=== PATIENT | male | born 2000 | race American Indian/Alaskan Native ===

== ENCOUNTER 2019-01-19 04:04 | Emergency (ER) | payer SELFPAY ==
[2019-01-19 04:48] LABS: Basophils % (Auto) 0.4 % (0.0-1.8); Eosinophils % (Auto) 0.3 % (0.0-4.3); Hematocrit 47.5 % (35.5-45.6); Hemoglobin 16.3 gm/dl (11.8-15.2); Lymphocytes # (Auto) 0.8 K/mm3 (1.2-5.4); Lymphocytes % (Auto) 9.7 % (13.4-35.0); Mean Corpuscular HGB Conc 34 % (32-34); Mean Corpuscular Volume 90 fl (84-94); Monocytes # (Auto) 0.5 K/mm3 (0.0-0.8); Monocytes % (Auto) 6.1 % (0.0-7.3); Platelet Count 224 K/mm3 (140-440); Red Blood Count 5.29 M/mm3 (3.65-5.03); Red Cell Distribution Width 13.4 % (13.2-15.2)
[2019-01-19 05:04] LABS: BUN/Creatinine Ratio 10; Blood Urea Nitrogen 7 mg/dL (9-20); Calcium 9.8 mg/dL (8.4-10.2); Hemolysis Index 14
[2019-01-19 05:07] LABS: Alanine Aminotransferase 10 units/L (7-56); Albumin 5.1 g/dL (3.9-5)
[2019-01-19 05:10] LABS: Bilirubin,Direct < 0.2 mg/dL (0-0.2)
[2019-01-19 06:26] LABS: Bilirubin,Urine NEG (Negative); Blood,Urine NEG (Negative); Color,Urine Straw (Yellow); Protein,Urine <15 mg/dL mg/dL (Negative); RBC,Urine < 1.0 /HPF (0.0-6.0); Urobilinogen,Urine < 2.0 mg/dL (<2.0)
[2019-01-19 06:33] LABS: Amphetamine Screen,Urine PRESUMPTIVE NEGATIVE; Benzodiazepines Screen,Urine PRESUMPTIVE NEGATIVE; Cocaine Screen,Urine PRESUMPTIVE NEGATIVE; Methadone Screen,Urine PRESUMPTIVE NEGATIVE; Opiate Screen,Urine PRESUMPTIVE NEGATIVE
[2019-01-19] MEDS ORDERED: SODIUM CHLORIDE 0.9% 1000 ML 1,000 ML IV ONE (06:38)
--- NOTE | 2019-01-19 06:38 | Emergency Department Report ---
ED General Adult HPI - General Chief complaint: Arrhythmia/Palpitations Stated complaint: RAPID HEART BEAT HEADACHE Time Seen by Provider: 01/19/19 06:08 Source: patient Mode of arrival: Ambulatory Limitations: No Limitations - History of Present Illness Initial comments: This is a 18 year old that admitted he took 2 of a friend's pills which he thought were Xanax. However they seem to have an untoward effect and his heart started racing. He states that he has not taken any Xanax for several days but apparently does take it when it's available. He denies any medical history. He denies any injury or seizure. He states that he has been here from [facility] for 3 days. He denies any difficulty in breathing, leg pain or swelling. -: Gradual Location: head (headache was mild and resolved) Severity scale (0 -10): 0 Quality: other (heart was racing) Consistency: now resolved Improves with: none Worsens with: none Associated Symptoms: denies other symptoms Treatments Prior to Arrival: none - Related Data Home Medications Medication Instructions Recorded Confirmed Last Taken No Known Home Medications [No 01/19/19 01/19/19 Unknown Reported Home Medications] Allergies Allergy/AdvReac Type Severity Reaction Status Date / Time No Known Allergies Allergy Verified 01/19/19 04:40 ED Review of Systems ROS: Stated complaint: RAPID HEART BEAT HEADACHE Other details as noted in HPI Constitutional: denies: chills, fever Eyes: denies: eye pain, eye discharge, vision change ENT: denies: ear pain, throat pain Respiratory: denies: cough, shortness of breath, wheezing Cardiovascular: other (heart racing). denies: chest pain, palpitations Endocrine: no symptoms reported Gastrointestinal: denies: abdominal pain, nausea, diarrhea Genitourinary: denies: urgency, dysuria Musculoskeletal: denies: back pain, joint swelling, arthralgia Skin: denies: rash, lesions Neurological: headache. denies: weakness, paresthesias Psychiatric: denies: anxiety, depression Hematological/Lymphatic: denies: easy bleeding, easy bruising ED Past Medical Hx - Past Medical History Previous Medical History?: No - Surgical History Past Surgical History?: No - Social History Smoking Status: Current Every Day Smoker Substance Use Type: Marijuana, Other - Medications Home Medications: Home Medications Medication Instructions Recorded Confirmed Last Taken Type No Known Home Medications [No 01/19/19 01/19/19 Unknown History Reported Home Medications] ED Physical Exam - General Limitations: Altered Mental Status (somewhat lethargic) General appearance: alert, in no apparent distress - Head Head exam: Present: atraumatic, normocephalic - Eye Eye exam: Present: normal appearance. Absent: scleral icterus - ENT ENT exam: Present: mucous membranes moist - Neck Neck exam: Present: normal inspection - Respiratory Respiratory exam: Present: normal lung sounds bilaterally. Absent: respiratory distress - Cardiovascular Cardiovascular Exam: Present: normal rhythm, tachycardia. Absent: systolic murmur, diastolic murmur, rubs, gallop - GI/Abdominal GI/Abdominal exam: Present: soft, normal bowel sounds. Absent: distended, tenderness, guarding, rebound - Rectal Rectal exam: Present: deferred - Extremities Exam Extremities exam: Present: normal inspection - Back Exam Back exam: Present: normal inspection - Neurological Exam Neurological exam: Present: alert, oriented X3, CN II-XII intact. Absent: motor sensory deficit - Psychiatric Psychiatric exam: Present: normal mood, flat affect - Skin Skin exam: Present: warm, dry, intact, normal color. Absent: rash ED Course Vital Signs 01/19/19 01/19/19 01/19/19 04:08 04:19 07:00 Temperature 98.3 F 98 F Pulse Rate 175 H 88 Respiratory 20 20 21 Rate Blood Pressure 135/74 105/71 Blood Pressure 135/74 [Right] O2 Sat by Pulse 98 99 Oximetry 01/19/19 01/19/19 01/19/19 07:15 07:30 07:37 Temperature 98.4 F Pulse Rate 86 78 Respiratory 19 20 Rate Blood Pressure 113/71 98/59 Blood Pressure [Right] O2 Sat by Pulse Oximetry 01/19/19 01/19/19 01/19/19 07:45 08:00 08:15 Temperature Pulse Rate 82 79 75 Respiratory 20 19 22 Rate Blood Pressure 95/61 95/57 99/61 Blood Pressure [Right] O2 Sat by Pulse Oximetry 01/19/19 08:30 Temperature Pulse Rate 95 H Respiratory 12 Rate Blood Pressure 104/68 Blood Pressure [Right] O2 Sat by Pulse Oximetry ED Medical Decision Making - Lab Data Result diagrams: 01/19/19 04:38 01/19/19 04:38 Laboratory Results - last 24 hr 1101/19/19 01/19/19 04:38 04:38 04:38 WBC 8.1 RBC 5.29 H Hgb 16.3 H Hct 47.5 H MCV 90 MCH 31 MCHC 34 RDW 13.4 Plt Count 224 Lymph % (Auto) 9.7 L Cobb % (Auto) 6.1 Eos % (Auto) 0.3 Baso % (Auto) 0.4 Lymph # 0.8 L Cobb # 0.5 Eos # 0.0 Baso # 0.0 Seg Neutrophils % 83.5 H Seg Neutrophils # 6.8 Sodium 139 Potassium 3.4 L Chloride 98.3 Carbon Dioxide 24 Anion Gap 20 BUN 7 L Creatinine 0.7 L Estimated GFR > 60 BUN/Creatinine Ratio 10 Glucose 156 H Calcium 9.8 Total Bilirubin 0.70 Direct Bilirubin < 0.2 Indirect Bilirubin 0.5 AST 15 ALT 10 Alkaline Phosphatase 75 Troponin T < 0.010 Total Protein 7.5 Albumin 5.1 H Albumin/Globulin Ratio 2.1 Urine Bilirubin Urine RBC (Auto) Urine Opiates Screen Urine Methadone Screen Ur Barbiturates Screen Ur Phencyclidine Scrn Ur Amphetamines Screen U Benzodiazepines Scrn Urine Cocaine Screen 01/19/19 01/19/19 06:00 06:00 WBC RBC Hgb Hct MCV MCH MCHC RDW Plt Count Lymph % (Auto) Cobb % (Auto) Eos % (Auto) Baso % (Auto) Lymph # Cobb # Eos # Baso # Seg Neutrophils % Seg Neutrophils # Sodium Potassium Chloride Carbon Dioxide Anion Gap BUN Creatinine Estimated GFR BUN/Creatinine Ratio Glucose Calcium Total Bilirubin Direct Bilirubin Indirect Bilirubin AST ALT Alkaline Phosphatase Troponin T Total Protein Albumin Albumin/Globulin Ratio Urine Bilirubin Neg Urine RBC (Auto) < 1.0 Urine Opiates Screen Presumptive negative Urine Methadone Screen Presumptive negative Ur Barbiturates Screen Presumptive negative Ur Phencyclidine Scrn Presumptive negative Ur Amphetamines Screen Presumptive negative U Benzodiazepines Scrn Presumptive negative Urine Cocaine Screen Presumptive negative Laboratory Results - last 24 hr 01/19/19 01/19/19 01/19/19 04:38 04:38 04:38 WBC 8.1 RBC 5.29 H Hgb 16.3 H Hct 47.5 H MCV 90 MCH 31 MCHC 34 RDW 13.4 Plt Count 224 Lymph % (Auto) 9.7 L Cobb % (Auto) 6.1 Eos % (Auto) 0.3 Baso % (Auto) 0.4 Lymph # 0.8 L Cobb # 0.5 Eos # 0.0 Baso # 0.0 Seg Neutrophils % 83.5 H Seg Neutrophils # 6.8 APTT Sodium 139 Potassium 3.4 L Chloride 98.3 Carbon Dioxide 24 Anion Gap 20 BUN 7 L Creatinine 0.7 L Estimated GFR > 60 BUN/Creatinine Ratio 10 Glucose 156 H Calcium 9.8 Magnesium Total Bilirubin 0.70 Direct Bilirubin < 0.2 Indirect Bilirubin 0.5 AST 15 ALT 10 Alkaline Phosphatase 75 Troponin T < 0.010 Total Protein 7.5 Albumin 5.1 H Albumin/Globulin Ratio 2.1 TSH Free T4 Urine Color Urine Turbidity Urine pH Ur Specific [place] Urine Protein Urine Glucose (UA) Urine Ketones Urine Blood Urine Nitrite Urine Bilirubin Urine Urobilinogen Ur Leukocyte Esterase Urine WBC (Auto) Urine RBC (Auto) Urine Opiates Screen Urine Methadone Screen Ur Barbiturates Screen Ur Phencyclidine Scrn Ur Amphetamines Screen U Benzodiazepines Scrn Urine Cocaine Screen U Marijuana (THC) Screen Drugs of Abuse Note 01/19/19 01/19/19 01/19/19 06:00 06:00 07:05 WBC RBC Hgb Hct MCV MCH MCHC RDW Plt Count Lymph % (Auto) Cobb % (Auto) Eos % (Auto) Baso % (Auto) Lymph # Cobb # Eos # Baso # Seg Neutrophils % Seg Neutrophils # APTT 30.3 Sodium Potassium Chloride Carbon Dioxide Anion Gap BUN Creatinine Estimated GFR BUN/Creatinine Ratio Glucose Calcium Magnesium Total Bilirubin Direct Bilirubin Indirect Bilirubin AST ALT Alkaline Phosphatase Troponin T Total Protein Albumin Albumin/Globulin Ratio TSH Free T4 Urine Color Straw Urine Turbidity Clear Urine pH 7.0 Ur Specific [place] 1.004 Urine Protein <15 mg/dl Urine Glucose (UA) Neg Urine Ketones Neg Urine Blood Neg Urine Nitrite Neg Urine Bilirubin Neg Urine Urobilinogen < 2.0 Ur Leukocyte Esterase Neg Urine WBC (Auto) 0.0 Urine RBC (Auto) < 1.0 Urine Opiates Screen Presumptive negative Urine Methadone Screen Presumptive negative Ur Barbiturates Screen Presumptive negative Ur Phencyclidine Scrn Presumptive negative Ur Amphetamines Screen Presumptive negative U Benzodiazepines Scrn Presumptive negative Urine Cocaine Screen Presumptive negative U Marijuana (THC) Screen Presumptive positive Drugs of Abuse Note Disclamer 01/19/19 01/19/19 07:05 07:05 WBC RBC Hgb Hct MCV MCH MCHC RDW Plt Count Lymph % (Auto) Cobb % (Auto) Eos % (Auto) Baso % (Auto) Lymph # Cobb # Eos # Baso # Seg Neutrophils % Seg Neutrophils # APTT Sodium Potassium Chloride Carbon Dioxide Anion Gap BUN Creatinine Estimated GFR BUN/Creatinine Ratio Glucose Calcium Magnesium 2.10 Total Bilirubin Direct Bilirubin Indirect Bilirubin AST ALT Alkaline Phosphatase Troponin T Total Protein Albumin Albumin/Globulin Ratio TSH 2.360 Free T4 1.50 H Urine Color Urine Turbidity Urine pH Ur Specific [place] Urine Protein Urine Glucose (UA) Urine Ketones Urine Blood Urine Nitrite Urine Bilirubin Urine Urobilinogen Ur Leukocyte Esterase Urine WBC (Auto) Urine RBC (Auto) Urine Opiates Screen Urine Methadone Screen Ur Barbiturates Screen Ur Phencyclidine Scrn Ur Amphetamines Screen U Benzodiazepines Scrn Urine Cocaine Screen U Marijuana (THC) Screen Drugs of Abuse Note Laboratory Results - last 24 hr 01/19/19 01/19/19 01/19/19 04:38 04:38 04:38 WBC 8.1 RBC 5.29 H Hgb 16.3 H Hct 47.5 H MCV 90 MCH 31 MCHC 34 RDW 13.4 Plt Count 224 Lymph % (Auto) 9.7 L [place] % (Auto) 6.1 Eos % (Auto) 0.3 Baso % (Auto) 0.4 Lymph # 0.8 L Cobb # 0.5 Eos # 0.0 Baso # 0.0 Seg Neutrophils % 83.5 H Seg Neutrophils # 6.8 APTT Sodium 139 Potassium 3.4 L Chloride 98.3 Carbon Dioxide 24 Anion Gap 20 BUN 7 L Creatinine 0.7 L Estimated GFR > 60 BUN/Creatinine Ratio 10 Glucose 156 H Calcium 9.8 Magnesium Total Bilirubin 0.70 Direct Bilirubin < 0.2 Indirect Bilirubin 0.5 AST 15 ALT 10 Alkaline Phosphatase 75 Troponin T < 0.010 Total Protein 7.5 Albumin 5.1 H Albumin/Globulin Ratio 2.1 TSH Free T4 Urine Color Urine Turbidity Urine pH Ur Specific [place] Urine Protein Urine Glucose (UA) Urine Ketones Urine Blood Urine Nitrite Urine Bilirubin Urine Urobilinogen Ur Leukocyte Esterase Urine WBC (Auto) Urine RBC (Auto) Urine Opiates Screen Urine Methadone Screen Ur Barbiturates Screen Ur Phencyclidine Scrn Ur Amphetamines Screen U Benzodiazepines Scrn Urine Cocaine Screen U Marijuana (THC) Screen Drugs of Abuse Note 01/19/19 01/19/19 01/19/19 06:00 06:00 07:05 WBC RBC Hgb Hct MCV MCH MCHC RDW Plt Count Lymph % (Auto) Cobb % (Auto) Eos % (Auto) Baso % (Auto) Lymph # Cobb # Eos # Baso # Seg Neutrophils % Seg Neutrophils # APTT 30.3 Sodium Potassium Chloride Carbon Dioxide Anion Gap BUN Creatinine Estimated GFR BUN/Creatinine Ratio Glucose Calcium Magnesium Total Bilirubin Direct Bilirubin Indirect Bilirubin AST ALT Alkaline Phosphatase Troponin T Total Protein Albumin Albumin/Globulin Ratio TSH Free T4 Urine Color Straw Urine Turbidity Clear Urine pH 7.0 Ur Specific [place] 1.004 Urine Protein <15 mg/dl Urine Glucose (UA) Neg Urine Ketones Neg Urine Blood Neg Urine Nitrite Neg Urine Bilirubin Neg Urine Urobilinogen < 2.0 Ur Leukocyte Esterase Neg Urine WBC (Auto) 0.0 Urine RBC (Auto) < 1.0 Urine Opiates Screen Presumptive negative Urine Methadone Screen Presumptive negative Ur Barbiturates Screen Presumptive negative Ur Phencyclidine Scrn Presumptive negative Ur Amphetamines Screen Presumptive negative U Benzodiazepines Scrn Presumptive negative Urine Cocaine Screen Presumptive negative U Marijuana (THC) Screen Presumptive positive Drugs of Abuse Note Disclamer 01/19/19 01/19/19 07:05 07:05 WBC RBC Hgb Hct MCV MCH MCHC RDW Plt Count Lymph % (Auto) Cobb % (Auto) Eos % (Auto) Baso % (Auto) Lymph # Cobb # Eos # Baso # Seg Neutrophils % Seg Neutrophils # APTT Sodium Potassium Chloride Carbon Dioxide Anion Gap BUN Creatinine Estimated GFR BUN/Creatinine Ratio Glucose Calcium Magnesium 2.10 Total Bilirubin Direct Bilirubin Indirect Bilirubin AST ALT Alkaline Phosphatase Troponin T Total Protein Albumin Albumin/Globulin Ratio TSH 2.360 Free T4 1.50 H Urine Color Urine Turbidity Urine pH Ur Specific [place] Urine Protein Urine Glucose (UA) Urine Ketones Urine Blood Urine Nitrite Urine Bilirubin Urine Urobilinogen Ur Leukocyte Esterase Urine WBC (Auto) Urine RBC (Auto) Urine Opiates Screen Urine Methadone Screen Ur Barbiturates Screen Ur Phencyclidine Scrn Ur Amphetamines Screen U Benzodiazepines Scrn Urine Cocaine Screen U Marijuana (THC) Screen Drugs of Abuse Note Laboratory Results - last 24 hr 01/19/19 01/19/19 01/19/19 04:38 04:38 04:38 WBC 8.1 RBC 5.29 H Hgb 16.3 H Hct 47.5 H MCV 90 MCH 31 MCHC 34 RDW 13.4 Plt Count 224 Lymph % (Auto) 9.7 L [place] % (Auto) 6.1 Eos % (Auto) 0.3 Baso % (Auto) 0.4 Lymph # 0.8 L Cobb # 0.5 Eos # 0.0 Baso # 0.0 Seg Neutrophils % 83.5 H Seg Neutrophils # 6.8 PT INR APTT D-Dimer Sodium 139 Potassium 3.4 L Chloride 98.3 Carbon Dioxide 24 Anion Gap 20 BUN 7 L Creatinine 0.7 L Estimated GFR > 60 BUN/Creatinine Ratio 10 Glucose 156 H Calcium 9.8 Magnesium Total Bilirubin 0.70 Direct Bilirubin < 0.2 Indirect Bilirubin 0.5 AST 15 ALT 10 Alkaline Phosphatase 75 Troponin T < 0.010 Total Protein 7.5 Albumin 5.1 H Albumin/Globulin Ratio 2.1 TSH Free T4 Urine Color Urine Turbidity Urine pH Ur Specific [place] Urine Protein Urine Glucose (UA) Urine Ketones Urine Blood Urine Nitrite Urine Bilirubin Urine Urobilinogen Ur Leukocyte Esterase Urine WBC (Auto) Urine RBC (Auto) Urine Opiates Screen Urine Methadone Screen Ur Barbiturates Screen Ur Phencyclidine Scrn Ur Amphetamines Screen U Benzodiazepines Scrn Urine Cocaine Screen U Marijuana (THC) Screen Drugs of Abuse Note 01/19/19 01/19/19 01/19/19 06:00 06:00 07:05 WBC RBC Hgb Hct MCV MCH MCHC RDW Plt Count Lymph % (Auto) Cobb % (Auto) Eos % (Auto) Baso % (Auto) Lymph # Cobb # Eos # Baso # Seg Neutrophils % Seg Neutrophils # PT TNR INR TNR APTT TNR D-Dimer TNR Sodium Potassium Chloride Carbon Dioxide Anion Gap BUN Creatinine Estimated GFR BUN/Creatinine Ratio Glucose Calcium Magnesium Total Bilirubin Direct Bilirubin Indirect Bilirubin AST ALT Alkaline Phosphatase Troponin T Total Protein Albumin Albumin/Globulin Ratio TSH Free T4 Urine Color Straw Urine Turbidity Clear Urine pH 7.0 Ur Specific [place] 1.004 Urine Protein <15 mg/dl Urine Glucose (UA) Neg Urine Ketones Neg Urine Blood Neg Urine Nitrite Neg Urine Bilirubin Neg Urine Urobilinogen < 2.0 Ur Leukocyte Esterase Neg Urine WBC (Auto) 0.0 Urine RBC (Auto) < 1.0 Urine Opiates Screen Presumptive negative Urine Methadone Screen Presumptive negative Ur Barbiturates Screen Presumptive negative Ur Phencyclidine Scrn Presumptive negative Ur Amphetamines Screen Presumptive negative U Benzodiazepines Scrn Presumptive negative Urine Cocaine Screen Presumptive negative U Marijuana (THC) Screen Presumptive positive Drugs of Abuse Note Disclamer 01/19/19 01/19/19 01/19/19 07:05 07:05 08:09 WBC RBC Hgb Hct MCV MCH MCHC RDW Plt Count Lymph % (Auto) [place] % (Auto) Eos % (Auto) Baso % (Auto) Lymph # Cobb # Eos # Baso # Seg Neutrophils % Seg Neutrophils # PT 16.9 H INR 1.39 H APTT 32.2 D-Dimer Sodium Potassium Chloride Carbon Dioxide Anion Gap BUN Creatinine Estimated GFR BUN/Creatinine Ratio Glucose Calcium Magnesium 2.10 Total Bilirubin Direct Bilirubin Indirect Bilirubin AST ALT Alkaline Phosphatase Troponin T Total Protein Albumin Albumin/Globulin Ratio TSH 2.360 Free T4 1.50 H Urine Color Urine Turbidity Urine pH Ur Specific [place] Urine Protein Urine Glucose (UA) Urine Ketones Urine Blood Urine Nitrite Urine Bilirubin Urine Urobilinogen Ur Leukocyte Esterase Urine WBC (Auto) Urine RBC (Auto) Urine Opiates Screen Urine Methadone Screen Ur Barbiturates Screen Ur Phencyclidine Scrn Ur Amphetamines Screen U Benzodiazepines Scrn Urine Cocaine Screen U Marijuana (THC) Screen Drugs of Abuse Note Laboratory Results - last 24 hr 01/19/19 01/19/19 01/19/19 04:38 04:38 04:38 WBC 8.1 RBC 5.29 H Hgb 16.3 H Hct 47.5 H MCV 90 MCH 31 MCHC 34 RDW 13.4 Plt Count 224 Lymph % (Auto) 9.7 L [place] % (Auto) 6.1 Eos % (Auto) 0.3 Baso % (Auto) 0.4 Lymph # 0.8 L Cobb # 0.5 Eos # 0.0 Baso # 0.0 Seg Neutrophils % 83.5 H Seg Neutrophils # 6.8 PT INR APTT D-Dimer Sodium 139 Potassium 3.4 L Chloride 98.3 Carbon Dioxide 24 Anion Gap 20 BUN 7 L Creatinine 0.7 L Estimated GFR > 60 BUN/Creatinine Ratio 10 Glucose 156 H Calcium 9.8 Magnesium Total Bilirubin 0.70 Direct Bilirubin < 0.2 Indirect Bilirubin 0.5 AST 15 ALT 10 Alkaline Phosphatase 75 Troponin T < 0.010 Total Protein 7.5 Albumin 5.1 H Albumin/Globulin Ratio 2.1 TSH Free T4 Urine Color Urine Turbidity Urine pH Ur Specific [place] Urine Protein Urine Glucose (UA) Urine Ketones Urine Blood Urine Nitrite Urine Bilirubin Urine Urobilinogen Ur Leukocyte Esterase Urine WBC (Auto) Urine RBC (Auto) Urine Opiates Screen Urine Methadone Screen Ur Barbiturates Screen Ur Phencyclidine Scrn Ur Amphetamines Screen U Benzodiazepines Scrn Urine Cocaine Screen U Marijuana (THC) Screen Drugs of Abuse Note 01/19/19 01/19/19 01/19/19 06:00 06:00 07:05 WBC RBC Hgb Hct MCV MCH MCHC RDW Plt Count Lymph % (Auto) Cobb % (Auto) Eos % (Auto) Baso % (Auto) Lymph # Cobb # Eos # Baso # Seg Neutrophils % Seg Neutrophils # PT TNR INR TNR APTT TNR D-Dimer TNR Sodium Potassium Chloride Carbon Dioxide Anion Gap BUN Creatinine Estimated GFR BUN/Creatinine Ratio Glucose Calcium Magnesium Total Bilirubin Direct Bilirubin Indirect Bilirubin AST ALT Alkaline Phosphatase Troponin T Total Protein Albumin Albumin/Globulin Ratio TSH Free T4 Urine Color Straw Urine Turbidity Clear Urine pH 7.0 Ur Specific [place] 1.004 Urine Protein <15 mg/dl Urine Glucose (UA) Neg Urine Ketones Neg Urine Blood Neg Urine Nitrite Neg Urine Bilirubin Neg Urine Urobilinogen < 2.0 Ur Leukocyte Esterase Neg Urine WBC (Auto) 0.0 Urine RBC (Auto) < 1.0 Urine Opiates Screen Presumptive negative Urine Methadone Screen Presumptive negative Ur Barbiturates Screen Presumptive negative Ur Phencyclidine Scrn Presumptive negative Ur Amphetamines Screen Presumptive negative U Benzodiazepines Scrn Presumptive negative Urine Cocaine Screen Presumptive negative U Marijuana (THC) Screen Presumptive positive Drugs of Abuse Note Disclamer 01/19/19 01/19/19 01/19/19 07:05 07:05 08:09 WBC RBC Hgb Hct MCV MCH MCHC RDW Plt Count Lymph % (Auto) [place] % (Auto) Eos % (Auto) Baso % (Auto) Lymph # Cobb # Eos # Baso # Seg Neutrophils % Seg Neutrophils # PT 16.9 H INR 1.39 H APTT 32.2 D-Dimer < 135.00 Sodium Potassium Chloride Carbon Dioxide Anion Gap BUN Creatinine Estimated GFR BUN/Creatinine Ratio Glucose Calcium Magnesium 2.10 Total Bilirubin Direct Bilirubin Indirect Bilirubin AST ALT Alkaline Phosphatase Troponin T Total Protein Albumin Albumin/Globulin Ratio TSH 2.360 Free T4 1.50 H Urine Color Urine Turbidity Urine pH Ur Specific [place] Urine Protein Urine Glucose (UA) Urine Ketones Urine Blood Urine Nitrite Urine Bilirubin Urine Urobilinogen Ur Leukocyte Esterase Urine WBC (Auto) Urine RBC (Auto) Urine Opiates Screen Urine Methadone Screen Ur Barbiturates Screen Ur Phencyclidine Scrn Ur Amphetamines Screen U Benzodiazepines Scrn Urine Cocaine Screen U Marijuana (THC) Screen Drugs of Abuse Note - EKG Data -: EKG Interpreted by Me EKG shows normal: sinus rhythm, axis, intervals, QRS complexes, ST-T waves Rate: tachycardia - EKG Data Interpretation: nonspecific ST-T wave kim Critical care attestation.: If time is entered above; I have spent that time in minutes in the direct care of this critically ill patient, excluding procedure time. ED Disposition Clinical Impression: Substance abuse, Elevated serum free T4 level Disposition: DC-01 TO HOME OR SELFCARE Is pt being admited?: No Does the pt Need Aspirin: No Condition: Stable Instructions: Polysubstance Abuse (ED), Hyperthyroidism (ED) Additional Instructions: Obviously avoid the use of illicit substances. Your thyroid test was slightly elevated. This requires follow-up in the future with a primary care physician. Return any acute change or problem. Time of Disposition: 09:35
[2019-01-19 06:45] LABS: Cannabinoid Screen,Urine PRESUMPTIVE POSITIVE
[2019-01-19 07:46] LABS: Free T4 (Free Thyroxine) 1.5 ng/dL (0.76-1.46)
[2019-01-19 07:59] LABS: INR TNR (0.87-1.13)
[2019-01-19 08:01] LABS: Partial Thromboplastin Time TNR Sec. (24.2-36.6)
[2019-01-19 09:10] LABS: INR 1.39 (0.87-1.13)
[2019-01-19 09:11] LABS: Partial Thromboplastin Time 32.2 Sec. (24.2-36.6)
[2019-01-19 10:42] VITALS: BP 113/84
== END 2019-01-19 10:10 | disposition home or self-care (01) ==
LOC: ED 04:04
DX: F15.10 Other stimulant abuse, uncomplicated (principal); R79.89 Other specified abnormal findings of blood chemistry; Z79.899 Other long term (current) drug therapy
CPT/HCPCS: 36415; 80048; 80076; 80307; 81001; 83735; 84439; 84443; 84484; 85025; 85379; 85610; 85730; 93005; 93010; 96360; 99283; J7030